=== PATIENT | female | born 1985 | race American Indian/Alaskan Native ===

== ENCOUNTER 2019-03-28 10:58 | Emergency (ER) | payer OTHER ==
--- NOTE | 2019-03-28 11:52 | Event Note ---
ED Screening Note Date of service: 03/28/19 Time: 11:50 ED Screening Note: 34 y o female presents with right flank pain with ua frequency admits nausea, no abd pain This initial assessment/diagnostic orders/clinical plan/treatment(s) is/are subject to change based on patients health status, clinical progression and re- assessment by fellow clinical providers in the ED. Further treatment and workup at subsequent clinical providers discretion. Patient/guardian urged not to elope from the ED as their condition may be serious if not clinically assessed and managed. Initial orders include: ua,upt acc
[2019-03-28 12:42] LABS: HCG Qualitative,Urine Negative (Negative)
[2019-03-28 12:43] LABS: Bilirubin,Urine NEG (Negative); Blood,Urine SM (Negative); Color,Urine Yellow (Yellow); Mucus,Urine FEW /HPF; Protein,Urine <15 mg/dL mg/dL (Negative); Urobilinogen,Urine < 2.0 mg/dL (<2.0); WBC,Urine < 1.0 /HPF (0.0-6.0)
--- NOTE | 2019-03-28 14:06 | XRay Report ---
ABDOMEN 1 VIEW 1:55 PM INDICATION / CLINICAL INFORMATION: Abdominal pain.. COMPARISON: None available. FINDINGS: TUBES / LINES: None. BOWEL GAS PATTERN: No evidence of bowel obstruction or mass effect. FREE AIR / EXTRALUMINAL GAS: None seen. ADDITIONAL FINDINGS: Several small, rounded, clustered calcifications in the right upper quadrant. IMPRESSION: Grouped calcifications in the right upper quadrant are probably related to gallstones. Signer Name: Navjot Barry MD Signed: 03/28/2019 2:01 PM Workstation Name: [id number]
[2019-03-28] MEDS ORDERED: IBUPROFEN 800 MG TAB PO ONE (15:02)
--- NOTE | 2019-03-28 15:02 | Emergency Department Report ---
ED Back Pain/Injury HPI - General Chief Complaint: Back Pain/Injury Stated Complaint: BACK PAIN Time Seen by Provider: 03/28/19 14:58 Source: patient Limitations: No Limitations - History of Present Illness Initial Comments: 34 YO AA FEMALE COMES TO ER WITH A/C BACK PAIN. OBESE. SHE ALSO ADDS SHE IS CONCERNED SHE IS PREG. SHE IS IN [place] FOR MD AT [facility] TAKING PO NAD AMBULATORY TO ER MD Complaint: back pain -: month(s) Similar Symptoms Previously: Yes Improves With: immobilization Worsens With: movement Associated Symptoms: denies other symptoms - Related Data Previous Rx's Medication Instructions Recorded Last Taken Type Ibuprofen [Motrin] 800 mg PO Q8HR PRN #30 tablet 03/28/19 Unknown Rx Allergies Allergy/AdvReac Type Severity Reaction Status Date / Time No Known Allergies Allergy Unverified 03/28/19 13:27 ED Review of Systems ROS: Stated complaint: BACK PAIN Other details as noted in HPI Comment: All other systems reviewed and negative ED Past Medical Hx - Past Medical History SCHIZOAFFECTIVE Surgical history: no surgical history Psychiatric history: no pertinent history SNAP SHEARER history: no SNAP SHEARER history ED Back Pain Physical Exam - Exam General: Vital signs noted. No distress. Alert and acting appropriately. Back/Abdomen: No Abdominal Tenderness, No Perithoracic Tenderness, No Perilumbar Tenderness, No Sacroiliac Tenderness, No Flank Tenderness, No Straight Leg Raise Pain Neuro: Yes Normal Sensation, Yes Normal DTR's, Yes Normal Gait, No Motor Weakness ED Course Vital Signs 03/28/19 11:18 Temperature 98.6 F Pulse Rate 80 Respiratory 18 Rate Blood Pressure 106/68 O2 Sat by Pulse 96 Oximetry Ed Back Pain Tests - Tests Tests: Normal UA, Normal X Rays ED Medical Decision Making - Medical Decision Making Lab Results 03/28/19 Range/Units Unknown Urine Color Yellow (Yellow) Urine Turbidity Clear (Clear) Urine pH 7.0 (5.0-7.0) Ur Specific [place] 1.026 (1.003-1.030) Urine Protein <15 mg/dl (Negative) mg/dL Urine Glucose (UA) Neg (Negative) mg/dL Urine Ketones Neg (Negative) mg/dL Urine Blood Sm (Negative) Urine Nitrite Neg (Negative) Ur Reducing Substances Not Reportable Urine Bilirubin Neg (Negative) Urine Ictotest Not Reportable Urine Urobilinogen < 2.0 (<2.0) mg/dL Ur Leukocyte Esterase Neg (Negative) Urine WBC (Auto) < 1.0 (0.0-6.0) /HPF Urine RBC (Auto) 20.0 (0.0-6.0) /HPF U Epithel Cells (Auto) 1.0 (0-13.0) /HPF Urine Mucus Few /HPF Urine HCG, Qual Negative (Negative) Vital Signs 03/28/19 11:18 Temperature 98.6 F Pulse Rate 80 Respiratory 18 Rate Blood Pressure 106/68 O2 Sat by Pulse 96 Oximetry UA NOTED PT CONCERNED - NEG MOTRIN FOR PAIN A/C BACK PAIN NO FALL OR TRAUMA NEURO INTACT VSS DC WITH DC POC AND PCP FOLLOW UP - Differential Diagnosis RO PREG Critical care attestation.: If time is entered above; I have spent that time in minutes in the direct care of this critically ill patient, excluding procedure time. ED Disposition Clinical Impression: Back pain Disposition: DC-01 TO HOME OR SELFCARE Is pt being admited?: No Does the pt Need Aspirin: No Condition: Stable Instructions: Back Pain (ED) Additional Instructions: STAY WELL HYDRATED MOTRIN FOR PAIN FOLLOW UP WITH PCP REFERRAL BELOW Prescriptions: Ibuprofen [Motrin] 800 mg PO Q8HR PRN #30 tablet PRN Reason: Pain, Moderate (4-6) Referrals: ANATOLIY MILLER MD [Staff Physician] - 3-5 Days Time of Disposition: 15:05
[2019-03-28 17:10] VITALS: BP 105/70
== END 2019-03-28 16:12 | disposition home or self-care (01) ==
LOC: ED 10:58
DX: M54.9 Dorsalgia, unspecified (principal)
CPT/HCPCS: 74018; 81001; 81025